=== PATIENT | male | born 1960 ===

== ENCOUNTER 2025-01-29 07:00 | Day surgery (SDC) | payer OTHER ==
[2025-01-21 07:11] LABS: BASO % 0.9 % (0.1-1.2); EOS # 0.14 (0.04-0.54); EOS % 2.0 % (0.7-7.0); LYMPH # 1.72 (1.18-3.74); LYMPH % 25.1 % (19.3-53.1); MEAN PLATELET VOLUME 8.90 fl (9.4-12.4); MONO # 0.46 (0.24-0.82); MONO % 6.7 % (4.7-12.5); NEUT # 4.44 (1.56-6.13); NEUT % 64.9 % (34.0-71.1); RED CELL DISTRIBUTION WIDTH 12.3 % (11.6-14.4)
[2025-01-21 07:15] LABS: URINE APPEARANCE Clear; URINE BILIRRUBIN Negative (NEGATIVE); URINE BLOOD Negative; URINE COLOR Yellow; URINE GLUCOSE Negative (NEGATIVE); URINE KETONE Negative (NEGATIVE); URINE LEUKOCYTE Negative; URINE NITRATE Negative; URINE PROTEIN Negative (NEGATIVE); URINE UROBILINOGEN 0.2 E.U./dl
[2025-01-21 07:23] LABS: URINE BACTERIA 1.1 uL (0.0-1933); URINE CAST 0.00 uL (0.0-1.40); URINE EPITHELIAL CELLS 0.2 uL (0.0-38.8); URINE RBC 1.0 uL (0.0-20.8); URINE WBC 0.7 uL (0.0-23.2)
[2025-01-21 07:33] LABS: INR 1.03
[2025-01-21 08:22] LABS: ALT/SGPT 22.0 U/L (12-78); AST/SGOT 13.0 U/L (15-37); BILIRUBIN TOTAL 0.65 mg/dL (0.3-1.2); BUN CREA RATIO 14.0 (7.0-25.0); CREATININE SERUM 0.98 mg/dL (0.70-1.30); GFR 76.52; GLOBULINA 3.2 G/DL (2.4-3.5); GLUCOSE FASTING 101.0 mg/dL (65-100); OSMOLALITY SERUM 286.0 MOSM/KG (275-295)
[2025-01-21 09:01] VITALS: BP 135/82
[~2025-01-29] VITALS: Ht 177.8 cm; Wt 68.0 kg
[~2025-01-29 07:00] MED LIST: ALLERGY RELIEF10 M3 PO; AMLODIPINE-OLM1 EAC2 PO; ARNUITY ELLIPT50 MCG IH; ASA81 MG PO; CALCIUM500 M1 PO; FOLIC ACID0.8 M1 PO; K2-4545 MCG; MAGNESIUM200 MG; OMEGA 3-6-9 11200 M1 PO; PROTONIX40 MG PO; ROSUVASTATIN CAL5 MG PO; SINGULAIR10 MG PO; ZESTRIL40 M1 PO; ZINC50 MG PO
[2025-01-29] MEDS ORDERED: CEFAZOLIN SODIUM 1,000 MG VIAL ONE (07:56)
== END 2025-01-29 15:05 | disposition home or self-care (01) ==
LOC: CIR.AMB 07:00
PROVIDERS: ATTEND Surgery
DX: K40.30 Unilateral inguinal hernia, with obstruction, without gangrene, not specified as recurrent (principal)